=== PATIENT | male | born 1990 | race Two or more races ===

== ENCOUNTER 2024-07-27 10:06 | Emergency (ER) | payer OTHER ==
[~2024-07-27] VITALS: Ht 170.2 cm; Wt 81.6 kg
[2024-07-27 10:13] VITALS: O2SAT 95
[2024-07-27] MEDS ORDERED: ACET1TAB23 PO (10:59)
== END 2024-07-27 11:02 | disposition home or self-care (01) ==
LOC: ER 10:07
DX: S76.011A Strain of muscle, fascia and tendon of right hip, initial encounter (principal); S76.811A Strain of other specified muscles, fascia and tendons at thigh level, right thigh, initial encounter; Z79.899 Other long term (current) drug therapy; X58.XXXA Exposure to other specified factors, initial encounter; Y93.66 Activity, soccer; Y92.89 Other specified places as the place of occurrence of the external cause; Y99.8 Other external cause status
CPT/HCPCS: A4606; A4663